=== PATIENT | male | born 1960 | race Caucasian/White ===

== ENCOUNTER 2016-02-19 21:50 | Emergency (ER) | payer OTHER ==
[~2016-02-19] VITALS: Ht 182.9 cm; Wt 77.3 kg
[2016-02-19 22:02] VITALS: BP 146/86; PULSE 88; RESP 16; O2SAT 98
--- NOTE | 2016-02-19 23:56 | ED.REPORT ---
HPI-Rash / Abscess Date of Service Feb 19, 2016 ED Provider: Cristiano Locke DO 55-year-old man with no pertinent past medical history regarding today's chief complaint presents today with bilateral leg neuritis with erythema 3 days. Patient states he used a new fabric softener for breeze recently though stopped approximately 7 days ago a few days later he developed this current lower extremity rash. He denies walking outside in shorts, other irritants around the house that may cause this, known allergies with the exception of elevator which she has not used or any previous history of these presenting symptoms. He has tried topical hydrocortisone cream with minimal effect, and has taken a Benadryl prior to ED arrival. He denies numbness in his legs or feet, endorses a tingling. Next sensation in bilateral lower legs. No gait disturbance or pain in lower extremities. Patient has no other medical complaints at this time. Nursing Notes Stated Complaint: REDNESS ON LEGS Chief Complaint: Skin Rash/Abscess Nursing Notes Reviewed: Yes Allergies: Coded Allergies: aloe vera (Verified Allergy, Mild, Rash, 02/19/16) No Known Allergies (Verified Allergy, Unknown, 04/01/15) Scheduled Triamcinolone Acet (Triamcinolone Acetonide Cream) 1 Applic/0.25 Gm Cr 1 APPLIC EXT BID General Time Seen by MD: 23:05 Chief Complaint Red area Hx Obtained From: Patient Onset Occurred: 3 days ago Past Medical History Past Medical History Pre-existing neurological problems (Pt does not get very specific) Multiple somatic complaints Past Surgical History right nephrectomy Left knee surgery Smoking History Current Every Day Smoker Social History Alcohol Use: Denies alcohol use Drug Use: Denies drug use Other Social History: Local resident Ambulatory Status Independent Review of Systems Constitutional: Denies: Chills, Fever Respiratory: Denies: Shortness of breath, Wheezing Cardiovascular: Denies: Chest pain, Edema, Palpitations GI: Denies: Diarrhea, Mucousy stool, Nausea, Vomiting Neurologic: Denies: Change LOC, Confusion, Dizziness, Focal weakness, Headache , Numbness, Problem walking, Shaking Psychiatric: Denies: Change mental status, Confusion Physical Exam Bilateral lower extremity erythema. Non-tender to palpation. Good distal dorsalis pedis pulses and posterior tibial pulses bilaterally. Initial Vital Signs Vital Signs (First) Date Time Temp Pulse Resp B/P Pulse Ox O2 Delivery O2 Flow Rate FiO2 02/19/16 22:02 36.3 88 16 146/86 98 Room Air Head / Eyes: Atraumatic Respiratory: Breath sounds normal Cardiovascular: Regular rate & rhythm Neurologic: Alert Lower Extremity / Pelvis / MS: Full range of motion, No swelling, Non-tender, Neurologic intact, Vascular intact, Tendon function NL Right Leg / Calf: Positive: Erythema present Left Leg / Calf: Positive: Erythema present Re-Eval/Medical Decision Med Decision/Clinical Course Patient has tried hydrocortisone cream with minimal effect as well as OTC Benadryl with no effect. Patient stable condition neurologically intact with good distal motor function and neurologic sensation. Dorsalis pedal and posterior tibial pulses intact. Erythema/eczema does not extend below the sock line located on the from mid tibia to malleolus. This looks very much like eczema or contact dermatitis. There is a remote possibility this may be an atypical presentation of scabies infestation. Patient instructed on when and why to return to the ED regarding this. Patient given prescription for triamcinolone acetonide cream. Discharged home in stable condition, patient instructed if symptoms do not resolve within the next week to return to the ED as this may be an atypical presentation of scabies Differential Diagnosis: Positive: Atopic dermatitis, Contact dermatitis, Eczema Discharge & Departure Shift Change Sign-Out Response to Therapy: Improved Impression: Primary Impression: Contact dermatitis Contact dermatitis type: irritant Contact dermatitis trigger: detergents Qualified Code: L24.0 - Irritant contact dermatitis due to detergents Additional Impression: Acute eczema Disposition: Home Discharge Condition All VS Reviewed: Yes Condition: Stable Additional Instructions: The rash you are experiencing on your legs could be contact dermatitis or eczema. I am prescribing a medication called triamcinolone acetate please apply this to the affected area as prescribed by your pharmacist. Referrals: [facility] (PCP) Attending Statement I personally took a history of performing exam. I concur with the resident's note as written above. To me the specific contact dermatitis. There are raise papules in a pattern consistent with his socks. Perhaps this is a SOAP related issue. There is no petechia and no purpura. This does not look like meningococcemia, [place] spotted fever or staph or strep related infection. Does not look like scabies. I do recommend a topical steroid and if not improved in 72 hours to be rechecked by his primary care. MONISHA VERA DO Feb 19, 2016 23:56 Cristiano Locke DO Feb 20, 2016 18:11
[2016-02-20] MEDS ORDERED: KEN25CR EXT
[2016-02-20 01:24] VITALS: BP 130/86; PULSE 71; RESP 16; O2SAT 97
== END 2016-02-20 01:05 | disposition home or self-care (01) ==
LOC: SED 21:50
DX: L24.0 Irritant contact dermatitis due to detergents (principal); F17.200 Nicotine dependence, unspecified, uncomplicated; Z88.8 Allergy status to other drugs, medicaments and biological substances

== ENCOUNTER 2016-06-07 17:28 | Emergency (ER) | payer OTHER ==
[~2016-06-07] VITALS: Ht 182.9 cm; Wt 77.3 kg
[~2016-06-07 17:28] MED LIST: KEN25CR EXT
[2016-06-07 17:48] VITALS: BP 128/90; PULSE 73; RESP 16; O2SAT 97
[2016-06-07 18:32] LABS: BASOPHILS % (AUTO) 0.6 % (0-3); EOSINOPHILS % (AUTO) 3.7 % (0-5); Mean Corpuscular Hemoglobin 32.2 pg (27.0-35.0); Mean Corpuscular Volume 94.9 fL (81-100); NEUTROPHILS % (AUTO) 51.4 % (40-74); Platelet Count 149 bil/L (150-400)
[2016-06-07 19:20] VITALS: BP 129/89; PULSE 74; O2SAT 100
--- NOTE | 2016-06-07 19:37 | ED.REPORT ---
HPI-Headache Date of Service Jun 07, 2016 ED Provider: Wilman Nava DO A 55 year old male not on anticoagulants with a medical history including an unspecified neurologic disorder and frequent falls presents to the ED with a headache onset 1.5 weeks ago, after a ground level fall without loss of consciousness. The pain is described as pressure and this is reportedly slowly worsening over the last 10 days. He also reports chills, bilateral jaw pain, bilateral eye pain, bilateral ear pain, and bilateral facial pain. The patient denies fever, hearing loss, rhinorrhea, cough, or other symptoms. He has taken OTC pain medication without relief. Nursing Notes Stated Complaint: HEAD PRESSURE Chief Complaint: Headache Nursing Notes Reviewed: Yes Allergies: Coded Allergies: aloe vera (Verified Allergy, Mild, Rash, 06/07/16) Scheduled Triamcinolone Acet (Triamcinolone Acetonide Cream) 1 Applic/0.25 Gm Cr 1 APPLIC EXT BID Scheduled PRN Naproxen (Naproxen) 500 Mg Tab 500 MG PO BID PRN PRN For Pain Tramadol (Tramadol) 50 Mg Tablet 50 MG PO Q4H PRN PRN For Pain General Time Seen by MD: 19:31 Chief Complaint Headache Hx Obtained From: Patient Arrived By: Walk-in Sudden in Onset?: No Onset Occurred: More than a week ago... (1.5 weeks) Symptom Duration: Since onset Location: : Generalized Quality: Painful Severity: Current: Moderate Severity: Maximum: Moderate Pertinent Negative: Relieved by nothing Recent Healthcare: No recent doctor visit Past Medical History Past Medical History Pre-existing neurological problems (Pt does not get very specific) Multiple somatic complaints Frequent falls Past Surgical History Right nephrectomy Left knee surgery Smoking History Current Every Day Smoker Social History Alcohol Use: Denies alcohol use Drug Use: Denies drug use Other Social History: Local resident Ambulatory Status Independent Review of Systems Review of Systems Note: + Jaw pain, facial pain Constitutional: Reports: Chills, Denies: Fever Eyes: Reports: Eye pain bilateral Ears / Nose / Throat: Reports: Earache bilateral, Denies: Hearing loss bilateral GI: Denies: Diarrhea, Vomiting Neurologic: Reports: Headache Complete sys rev & neg: except as marked. Respiratory: Denies: Non-productive cough, Shortness of breath Allergy / Immune: Denies: Rhinorrhea Physical Exam Initial Vital Signs Vital Signs (First) Date Time Temp Pulse Resp B/P Pulse Ox O2 Delivery O2 Flow Rate FiO2 06/07/16 17:48 36.1 73 16 128/90 97 Room Air Initial VS: Reviewed Respiratory: Breath sounds normal, Clear to auscultation, No respiratory distress Cardiovascular: Regular rate & rhythm, Heart sounds normal Abdomen / GI: Soft, Non-tender Skin: Warm, Dry Psychiatric: Mood/affect normal, Behavior normal, Normal thought content General/Constitutional: Awake, Alert Head / Eyes: Atraumatic, Normocephalic, PERRL, EOMI, No periorbital redness, No periorbital swelling, Conjunctiva NL Neck: Supple, Full range of motion Neurologic: Oriented X3, Speech NL, No motor deficits, No sensory deficits Interpretation & Diagnostics Lab Results Interpretation Result Diagram: 06/07/164 06/07/16 1824 Test 06/07/16 18:24 White Blood Count 5.2th/mm3 (3.8-10.1) Red Blood Count 4.69mil/mm3 (4.40-5.80) Hemoglobin 15.1g/dL (13.8-17.2) Hematocrit 44.5% (41.0-50.0) Mean Corpuscular Volume 94.9fL (81-100) Mean Corpuscular Hemoglobin 32.2pg (27.0-35.0) Mean Corpuscular Hemoglobin Concent 33.9% (32.0-37.0) Red Cell Distribution Width 13.5% (12.3-15.4) Platelet Count 149bil/L (150-400) Neutrophils (%) (Auto) 51.4% (40-74) Lymphocytes (%) (Auto) 33.3% (14-46) Monocytes (%) (Auto) 11.0% (4-12) Eosinophils (%) (Auto) 3.7% (0-5) Basophils (%) (Auto) 0.6% (0-3) Sodium Level 138mEq/L (134-144) Potassium Level 4.7mEq/L (3.5-5.2) Chloride Level 103mEq/L (97-108) Carbon Dioxide Level 22mmol/L (18-29) Blood Urea Nitrogen 15mg/dL (6-24) Creatinine 0.90mg/dL (0.76-1.27) Estimat Glomerular Filtration Rate 93mL/min (>59) Glucose Level 94mg/dL (60-99) Calcium Level 9.2mg/dL (8.5-10.1) Total Bilirubin 0.2mg/dL (0.0-1.2) Aspartate Amino Transf (AST/SGOT) 15U/L (0-50) Alanine Aminotransferase (ALT/SGPT) 14U/L (0-44) Alkaline Phosphatase 67U/L (25-150) Total Protein 6.8g/dL (6.4-8.4) Albumin 4.2g/dL (3.4-5.0) CT Head Interpretation IMPRESSION: 1. No acute intracranial abnormality. Dictated by: Abdon Motta M.D. on 06/07/2016 at 20:45 Study: Head CT no contrast Interpretation / Wet Read by: Interpret - Radiologist Re-Eval/Medical Decision Med Decision/Clinical Course Worsening frontal facial pain, overall does not seem like subarachnoid hemorrhage however given the chronicity in relation to a head injury head CT was obtained, there is no traumatic injury identified, and all suspect subarachnoid meningitis or other life-threatening pathology. Patient is generally without any distress and well-appearing. He will be discharged with strict return and follow-up precautions. Source of Hx: Old records Re-Evaluation/Progress : Time of Eval: 21:00 )( Patient Status: Condition improved Re-Evaluation/Progress Note: Discussed with patient CT and lab results, diagnosis, and plan for discharge. Follow-up and return to the ER instructions given. Patient agrees with plan for care and all questions were addressed. Counseled Regarding: Diagnosis, Lab results, Need for follow-up, When/why to return to ED Discharge & Departure Impression: Primary Impression: Frontal headache Disposition: Home Discharge Condition All VS Reviewed: Yes Condition: Improved Patient Instructions: Acute Headache (ED) Additional Instructions: Thank you for entrusting us with your care. Your exam today was reassuring for any serious illness at this time. You can try [id number] decongestant medication or Claritin. Use the pain medication as prescribed. Call your primary care provider tomorrow for a follow-up appointment. Return to the ER with any new or worsening symptoms. Referrals: Maria Del Rosario Diaz MD (PCP) Scribe Attestation Portions of this note were transcribed by Claire Arana. I, Dr. Nava, personally performed the history, physical exam, and medical decision-making; I reviewed and confirmed the accuracy of the information in the transcribed note. Signed by: Sunshine Palumbo, 06/07/2016, 22:15 copies to: Maria Del Rosario Diaz MD, Timothy S DO Jun 07, 2016 19:37 CLAIRE ARANA Jun 07, 2016 19:47
--- NOTE | 2016-06-07 20:48 | DRSVH ---
PROCEDURE: CT BRAIN WITHOUT CONTRAST ([id number]) INDICATIONS: persistent headache post fall TECHNIQUE: Noncontrast 4.5 mm thick angled axial sections acquired from the foramen magnum to the vertex, with c oronal reformats. COMPARISON: [facility], CT, BRAIN W/O CONTRAST, 08/25/2014, 3:58. FINDINGS: Image quality: Excellent. CSF spaces: Basal cisterns are patent. Ventricles are normal in size and shape. There is a probabl e arachnoid cyst redemonstrated in the posterior fossa. Brain: No intracranial hemorrhage, mass, or mass effect. Jay-white matter interface is preserved. Skull and face: Calvarium and visualized facial bones are intact, without suspicious lesions. Sinuses: Visualized sinuses demonstrate mild mucosal thickening in the ethmoid sinuses. The mastoid air cells are clear. IMPRESSION: 1. No acute intracranial abnormality. Dictated by: Abdon Motta M.D. on 06/07/2016 at 20:45 Approved by: Abdon Motta M.D. on 06/07/2016 at 20:46
[2016-06-07] MEDS ORDERED: NPR500T PO (21:16)
[2016-06-07] MEDS ORDERED: TRAM50TA2 PO (21:16)
[2016-06-07 21:49] VITALS: BP 124/81; PULSE 90; O2SAT 99
== END 2016-06-07 21:50 | disposition home or self-care (01) ==
LOC: SED 17:28
DX: R51 Headache (principal); F17.210 Nicotine dependence, cigarettes, uncomplicated; W22.8XXD Striking against or struck by other objects, subsequent encounter; Y93.01 Activity, walking, marching and hiking; Y99.8 Other external cause status; Y92.9 Unspecified place or not applicable; R29.6 Repeated falls
CPT/HCPCS: 36415; 70450; 80053; 85025; 96372; 99285; J1885

== ENCOUNTER 2016-09-14 18:13 | Emergency (ER) | payer OTHER ==
[~2016-09-14] VITALS: Ht 182.9 cm; Wt 75.0 kg
[~2016-09-14 18:13] MED LIST changes: +NPR500T PO; +TRAM50TA2 PO
[2016-09-14 18:21] VITALS: BP 135/89; PULSE 75; RESP 16; O2SAT 97
--- NOTE | 2016-09-14 18:36 | ED.REPORT ---
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 Associated symptoms include numbness on the right side of the face, tingling in his legs, blurry vision, chills, radiating right arm and right groin pain. The patient states that the pain "knocks him out cold" and he'll wake up on the floor. He denies fever or vomiting. The patient reports that he has had similar episodes for the past 7 years but that this headache is worse than usual. Patient states that he has nerve damage from a renal surgery that causes pain that radiates into his head and down his leg. Nursing Notes Stated Complaint: MIGRAINE,NUMB ARM,BLURRY VISION Chief Complaint: General Complaint Nursing Notes Reviewed: Yes Allergies: Coded Allergies: aloe vera (Verified Allergy, Mild, Rash, 09/14/16) Scheduled Triamcinolone Acet (Triamcinolone Acetonide Cream) 1 Applic/0.25 Gm Cr 1 APPLIC EXT BID Scheduled PRN Naproxen (Naproxen) 500 Mg Tab 500 MG PO BID PRN PRN For Pain Tramadol (Tramadol) 50 Mg Tablet 50 MG PO Q4H PRN PRN For Pain General Time Seen by MD: 18:35 Chief Complaint Headache Hx Obtained From: Patient Arrived By: Walk-in Sudden in Onset?: Yes Onset Occurred: 1 - 4 hours ago Symptom Duration: Since onset Location: : Generalized Quality: Painful Severity: Current: Severe Recent Healthcare: Recent doctor visit Similar Sx Previous: Yes Past Medical History Past Medical History Pre-existing neurological problems (Pt does not get very specific) Multiple somatic complaints Frequent falls Past Surgical History Right nephrectomy Left knee surgery Smoking History Current Every Day Smoker Social History Alcohol Use: "Social" Drug Use: Denies drug use Other Social History: Local resident Ambulatory Status Independent Review of Systems Review of Systems Note: +right groin pain Constitutional: Reports: Chills, Denies: Fever Eyes: Reports: Blurred bilateral GI: Denies: Nausea, Vomiting Musculoskeletal: Reports: Extremity pain Skin: Denies Itching, Denies Rash Neurologic: Reports: Change LOC, Headache, Numbness (right side of face), Denies: Lightheaded, Weakness Complete sys rev & neg: except as marked. Respiratory: Denies: Non-productive cough, Shortness of breath Physical Exam Initial Vital Signs Vital Signs (First) Date Time Temp Pulse Resp B/P Pulse Ox O2 Delivery O2 Flow Rate FiO2 09/14/16 18:21 36.6 75 16 135/89 97 Room Air Initial VS: Reviewed General/Constitutional: Awake, Alert Head / Eyes: Atraumatic, Normocephalic, PERRL, EOMI Neck: Atraumatic, Supple Neurologic: Oriented X3, Speech NL, No motor deficits, No sensory deficits no facial droop or asymmetry Respiratory / Chest: Atraumatic, Breath sounds NL, Breath sounds = bilat, No respiratory distress Cardiovascular: Heart rate NL, Regular rhythm, Heart sounds NL, No gallop, No murmurs, No rubs Skin: Atraumatic, Color NL, No rash, Warm, Dry Interpretation & Diagnostics Lab Results Interpretation Result Diagram: 09/14/16192509/14/166 Test 09/14/16 19:26 White Blood Count 10.3th/mm3 (3.8-10.1) Red Blood Count 4.66mil/mm3 (4.40-5.80) Hemoglobin 15.3g/dL (13.8-17.2) Hematocrit 44.1% (41.0-50.0) Mean Corpuscular Volume 94.6fL (81-100) Mean Corpuscular Hemoglobin 32.8pg (27.0-35.0) Mean Corpuscular Hemoglobin Concent 34.7% (32.0-37.0) Red Cell Distribution Width 13.3% (12.3-15.4) Platelet Count 193bil/L (150-400) Neutrophils (%) (Auto) 75.0% (40-74) Lymphocytes (%) (Auto) 16.8% (14-46) Monocytes (%) (Auto) 6.5% (4-12) Eosinophils (%) (Auto) 1.3% (0-5) Basophils (%) (Auto) 0.2% (0-3) Sodium Level 139mEq/L (134-144) Potassium Level 3.9mEq/L (3.5-5.2) Chloride Level 103mEq/L (97-108) Carbon Dioxide Level 22mmol/L (18-29) Blood Urea Nitrogen 17mg/dL (6-24) Creatinine 0.88mg/dL (0.76-1.27) Estimat Glomerular Filtration Rate 95mL/min (>59) Glucose Level 90mg/dL (60-99) Calcium Level 9.0mg/dL (8.5-10.1) Magnesium Level 1.9mg/dL (1.6-2.6) Total Bilirubin 0.6mg/dL (0.0-1.2) Aspartate Amino Transf (AST/SGOT) 13U/L (0-50) Alanine Aminotransferase (ALT/SGPT) 12U/L (0-44) Alkaline Phosphatase 59U/L (25-150) Total Protein 6.9g/dL (6.4-8.4) Albumin 3.9g/dL (3.4-5.0) ECG Interpretation ECG Interpretation: poor R wave progression no change from prior EKG Time: 19:32 Normal ECG Interpretation: Normal rate (70), Normal sinus rhythm Re-Eval/Medical Decision Re-Evaluation/Progress : Time of Eval: 20:03 Re-Evaluation/Progress Note: Patient wants to leave AMA. Alert, oreinted and polite. Unwilling to wait until labs complete, advised concern re electrolytes given his single kidney. Pt understands and will not stay. Advised this could be med effect, pt does not want further treatment. States RODGERS is feeling better. Ambulatory with steady gait. Discharge & Departure Impression: Primary Impression: Head ache Headache type: unspecified Headache chronicity pattern: acute headache Intractability: not intractable Qualified Code: R51 - Headache Disposition: AGAINST MEDICAL ADVICE Discharge Condition All VS Reviewed: Yes Condition: Stable Referrals: Maria Del Rosario Diaz MD (PCP) Scribe Attestation Portions of this note were transcribed by Ekaterina Das. I, Dr. Castillo personally performed the history, physical exam and medical decision-making; I reviewed and confirmed the accuracy of the information in the transcribed note. Signed by: Sunshine Chacko, 09/14/16 copies to: Maria Del Rosario Diaz MD, Donald L MD Sep 14, 2016 18:36 Pallavi Das Sep 14, 2016 18:43
[2016-09-14] MEDS ORDERED: 0.9% Sodium Chloride 1,000 ML IV ONE (19:11)
[2016-09-14] MEDS ORDERED: ProchlorPERazine 5 mg/mL 2 mL Inj IVPUSH ONE (19:15)
[2016-09-14 19:38] LABS: BASOPHILS % (AUTO) 0.2 % (0-3); EOSINOPHILS % (AUTO) 1.3 % (0-5); MONOCYTES % (AUTO) 6.5 % (4-12); Mean Corpuscular Hemoglobin 32.8 pg (27.0-35.0); Mean Corpuscular Volume 94.6 fL (81-100); Platelet Count 193 bil/L (150-400)
[2016-09-14 20:03] LABS: Magnesium 1.9 mg/dL (1.6-2.6)
== END 2016-09-14 20:08 | disposition left against medical advice (07) ==
LOC: SED 18:13
DX: R51 Headache (principal); F17.200 Nicotine dependence, unspecified, uncomplicated; Z91.81 History of falling
CPT/HCPCS: 36415; 80053; 83735; 85025; 93005; 96361; 96374; 96375; 99285; J0780; J1200; J7030